=== PATIENT | female | born 1975 | race American Indian/Alaskan Native ===

== ENCOUNTER 2019-06-26 19:42 | Inpatient (IN) | payer BC ==
[2019-06-26] MEDS ORDERED: ASPIRIN 325 MG TAB PO ONE (20:20)
--- NOTE | 2019-06-26 20:21 | Event Note ---
ED Screening Note Date of service: 06/26/19 Time: 20:16 ED Screening Note: This is a 43 y.o. F. that presents to the ER with left side chest pain and headache. Reports headache started last Thursday and chest pain started today. Patient recently started on lisinopril 4 days ago by PCP Dr. Whitlock with no change. This initial assessment/diagnostic orders/clinical plan/treatment(s) is/are subject to change based on patients health status, clinical progression and re- assessment by fellow clinical providers in the ED. Further treatment and workup at subsequent clinical providers discretion. Patient/guardian urged not to elope from the ED as their condition may be serious if not clinically assessed and managed. Initial orders include: Labs, EKG, & CXR
[2019-06-26 21:04] LABS: Basophils # (Auto) 0.1 K/mm3 (0.0-0.1); Basophils % (Auto) 1.2 % (0.0-1.8); Eosinophils # (Auto) 0.2 K/mm3 (0.0-0.4); Eosinophils % (Auto) 2.1 % (0.0-4.3); Hematocrit 35.3 % (30.3-42.9); Hemoglobin 11.8 gm/dl (10.1-14.3); Lymphocytes # (Auto) 2.8 K/mm3 (1.2-5.4); Lymphocytes % (Auto) 40.2 % (13.4-35.0); Mean Corpuscular HGB Conc 34 % (30-34); Mean Corpuscular Volume 83 fl (79-97); Monocytes # (Auto) 0.7 K/mm3 (0.0-0.8); Monocytes % (Auto) 10.5 % (0.0-7.3); Platelet Count 289 K/mm3 (140-440); Red Blood Count 4.24 M/mm3 (3.65-5.03); Red Cell Distribution Width 13.8 % (13.2-15.2)
[2019-06-26 21:07] LABS: BUN/Creatinine Ratio 13; Blood Urea Nitrogen 9 mg/dL (7-17); Calcium 8.7 mg/dL (8.4-10.2); Hemolysis Index 1
--- NOTE | 2019-06-26 21:14 | XRay Report ---
CHEST 1 VIEW 8:45 PM INDICATION / CLINICAL INFORMATION: Chest pain starting today. COMPARISON: None available. FINDINGS: SUPPORT DEVICES: None. HEART / MEDIASTINUM: The heart size and pulmonary vasculature are normal. The aorta is normal in jun adela. LUNGS / PLEURA: No significant pulmonary or pleural abnormality. No pneumothorax. ADDITIONAL FINDINGS: No significant additional findings. IMPRESSION: No acute findings. Signer Name: Jay Gordon MD Signed: 06/26/2019 9:10 PM Workstation Name: [id number]
--- NOTE | 2019-06-27 00:04 | Cat Scan Report ---
CTA CHEST WITH CONTRAST INDICATION / CLINICAL INFORMATION: CP, elevated d-dimer, r/o PE. TECHNIQUE: Axial CT images were obtained through the chest after injection of 100 MLO Omnipaque 350 IV contrast. 3 plane MIP and/or 3D reconstructions were produced. All CT scans at this location are performed usi ng CT dose reduction for ALARA by means of automated exposure control. COMPARISON: None available. FINDINGS: PULMONARY ARTERIES: Small, nonocclusive right upper lobe and right lower lobe emboli. THORACIC AORTA: No significant abnormality. HEART: Mildly enlarged. No pericardial effusion. CORONARY ARTERIES: No significant calcification. MEDIASTINUM / DEYA: No significant abnormality. PLEURA: No pleural effusion. No pneumothorax. LUNGS: No acute air space or interstitial disease. ADDITIONAL FINDINGS: None. UPPER ABDOMEN: No acute findings. SKELETAL STRUCTURES: No significant osseous abnormality. IMPRESSION: 1. Small, nonocclusive right upper and right lower lobe pulmonary emboli. 2. No acute pulmonary or pleural findings. CRITICAL RESULT: Time of Discovery (FINE GRADE BULLDOZER OPERATOR/CDT): 10:57 PM Time of Communication (FINE GRADE BULLDOZER OPERATOR/CDT): 11:00 PM Licensed Practitioner Receiving Report: MITRA Mar Signer Name: Meek Lyn MD Signed: 06/26/2019 11:59 PM Workstation Name: [id number]
[2019-06-27 00:19] LABS: INR 1.03 (0.87-1.13); Partial Thromboplastin Time 29.9 Sec. (24.2-36.6)
--- NOTE | 2019-06-27 00:19 | Emergency Department Report ---
ED Chest Pain HPI - General Chief Complaint: Chest Pain Stated Complaint: CHEST PAIN, HEADACHE,SOB,DIZZINESS, NAUSEA Time Seen by Provider: 06/26/19 20:16 Source: patient Mode of arrival: Ambulatory Limitations: No Limitations - History of Present Illness Initial Comments: Patient is a 43-year-old female presents to emergency room with complaints of left-sided chest pain that began at 3 PM today. She describes the pain as a sharp stabbing pain that lasts for a few minutes. Denies any chest pain currently. Patient has associated shortness of breath and nausea. Patient denies any lower extremity edema, or any chest pain, vomiting, radiation of the pain. Patient states she is on OCPs. She has never had this pain in the past. She denies any recent travel or recent surgery. Patient states she has a history of high blood pressure and was just started on lisinopril 20 mg last week by her primary care doctor. She states that she has been keeping a blood pressure log and her blood pressure has still been elevated every day. She has not yet discussed this with her primary care provider. She denies any personal or family history of cardiac issues or DVT/PE. - Related Data Previous Rx's Medication Instructions Recorded Last Taken Type Acetaminophen [Acetaminophen TAB] 650 mg PO Q4H PRN tablet 06/27/19 Unknown Rx Apixaban [Eliquis] 5 mg PO Q12HR #30 tablet 06/27/19 Unknown Rx Apixaban [Eliquis] 10 mg PO Q12HR #14 tablet 06/27/19 Unknown Rx amLODIPine [Norvasc] 10 mg PO QDAY #30 tablet 06/27/19 Unknown Rx oxyCODONE /ACETAMINOPHEN [Percocet 1 tab PO Q6H PRN #14 tablet 06/27/19 Unknown Rx 5/325 mg] Allergies Allergy/AdvReac Type Severity Reaction Status Date / Time ampicillin Allergy Hives Verified 06/26/19 20:14 Heart Score - HEART Score History: Slightly suspicious EKG: Normal Age: < 45 Risk factors: 1-2 risk factors Troponin: < normal limit HEART Score: 1 ED Review of Systems ROS: Stated complaint: CHEST PAIN, HEADACHE,SOB,DIZZINESS, NAUSEA Other details as noted in HPI Comment: All other systems reviewed and negative ED Past Medical Hx - Past Medical History Previous Medical History?: Yes Hx Hypertension: Yes - Surgical History Past Surgical History?: No - Social History Smoking Status: Never Smoker Substance Use Type: Alcohol - Medications Home Medications: Home Medications Medication Instructions Recorded Confirmed Last Taken Type Acetaminophen [Acetaminophen TAB] 650 mg PO Q4H PRN tablet 06/27/19 Unknown Rx Apixaban [Eliquis] 5 mg PO Q12HR #30 tablet 06/27/19 Unknown Rx Apixaban [Eliquis] 10 mg PO Q12HR #14 tablet 06/27/19 Unknown Rx amLODIPine [Norvasc] 10 mg PO QDAY #30 tablet 06/27/19 Unknown Rx oxyCODONE /ACETAMINOPHEN [Percocet 1 tab PO Q6H PRN #14 tablet 06/27/19 Unknown Rx 5/325 mg] ED Physical Exam - General Limitations: No Limitations General appearance: alert, in no apparent distress - Head Head exam: Present: atraumatic, normocephalic - Eye Eye exam: Present: normal appearance - ENT ENT exam: Present: mucous membranes moist - Respiratory Respiratory exam: Present: normal lung sounds bilaterally. Absent: respiratory distress, wheezes, rales, rhonchi, stridor, chest wall tenderness, accessory muscle use, decreased breath sounds, prolonged expiratory - Cardiovascular Cardiovascular Exam: Present: regular rate, normal rhythm, normal heart sounds. Absent: systolic murmur, diastolic murmur, rubs, gallop - Neurological Exam Neurological exam: Present: alert, oriented X3 - Psychiatric Psychiatric exam: Present: normal affect, normal mood - Skin Skin exam: Present: warm, dry, intact ED Course Vital Signs 06/26/19 06/27/19 06/27/19 20:16 00:41 00:45 Temperature 98.1 F Pulse Rate 71 90 74 Respiratory 18 16 13 Rate Blood Pressure 196/99 208/94 O2 Sat by Pulse 95 98 100 Oximetry 06/27/19 06/27/19 06/27/19 01:01 01:17 01:31 Temperature Pulse Rate 63 76 Respiratory 17 18 Rate Blood Pressure 119/52 119/52 201/100 O2 Sat by Pulse 100 100 100 Oximetry 06/27/19 06/27/19 06/27/19 01:45 02:01 02:15 Temperature Pulse Rate 61 56 L 67 Respiratory 18 20 19 Rate Blood Pressure 191/88 191/88 208/94 O2 Sat by Pulse 100 100 99 Oximetry 06/27/19 06/27/19 06/27/19 02:31 03:01 03:30 Temperature Pulse Rate 62 62 63 Respiratory 19 17 20 Rate Blood Pressure 208/94 167/81 167/81 O2 Sat by Pulse 99 100 99 Oximetry 06/27/19 06/27/19 06/27/19 03:40 03:50 04:00 Temperature Pulse Rate 76 60 56 L Respiratory 19 17 19 Rate Blood Pressure 167/81 167/81 O2 Sat by Pulse 98 98 98 Oximetry 06/27/19 04:26 Temperature 97.8 F Pulse Rate 60 Respiratory 18 Rate Blood Pressure 185/89 O2 Sat by Pulse 99 Oximetry - Consultations Consultation #1: 06/27/19 00:[address] Mccullough hospitalist for admission, will call again Consultation #2: 06/27/19 00:[address] Mccullough hospitalist who will accept and resume care of pt will admit pt to the hospital ED Medical Decision Making - Lab Data Result diagrams: 06/26/19 20:23 06/26/19 20:23 - Radiology Data Radiology results: report reviewed CTA CHEST WITH CONTRAST INDICATION / CLINICAL INFORMATION: CP, elevated d-dimer, r/o PE. TECHNIQUE: Axial CT images were obtained through the chest after injection of 100 MLO Omnipaque 350 IV contrast. 3 plane MIP and/or 3D reconstructions were produced. All CT scans at this location are performed using CT dose reduction for ALARA by means of automated exposure contr ol. COMPARISON: None available. FINDINGS: PULMONARY ARTERIES: Small, nonocclusive right upper lobe and right lower lobe emboli. THORACIC AORTA: No significant abnormality. HEART: Mildly enlarged. No pericardial effusion. CORONARY ARTERIES: No significant calcification. MEDIASTINUM / DEYA: No significant abnormality. PLEURA: No pleural effusion. No pneumothorax. LUNGS: No acute air space or interstitial disease. ADDITIONAL FINDINGS: None. UPPER ABDOMEN: No acute findings. SKELETAL STRUCTURES: No significant osseous abnormality. IMPRESSION: 1. Small, nonocclusive right upper and right lower lobe pulmonary emboli. 2. No acute pulmonary or pleural findings. CRITICAL RESULT: Time of Discovery (ARTIFICIAL FLOWERS SUPERVISOR/CDT): 10:57 PM Time of Communication (ARTIFICIAL FLOWERS SUPERVISOR/CDT): 11:00 PM Licensed Practitioner Receiving Report: MITRA Mar Signer Name: Meek Lyn MD Signed: 06/26/2019 11:59 PM Workstation Name: [id number] - Medical Decision Making Patient is a 43-year-old female presents to emergency room with complaints of left-sided chest pain that began at 3 PM today. She describes the pain as a sharp stabbing pain that lasts for a few minutes. Denies any chest pain cur rently. Patient has associated shortness of breath and nausea. Patient denies any lower extremity edema, or any chest pain, vomiting, radiation of the pain. Patient states she is on OCPs. She has never had this pain in the past. She denies any recent travel or recent surgery. Patient states she has a history of high blood pressure and was just started on lisinopril 20 mg last week by her primary care doctor. She states that she has been keeping a blood pressure log and her blood pressure has still been elevated every day. She has not yet discussed this with her primary care provider. She denies any personal or family history of cardiac issues or DVT/PE. vitals with elevated BP otherwise normal. labs significant for elevated D-dimer. troponin is negative x2. CTA chest performed and shows: 1. Small, nonocclusive right upper and right lower lobe pulmonary emboli. 2. No acute pulmonary or pleural findings. discussed case with Dr. Flores, ER attending and he recommended admission and started pt on heparin bolus. spoke with Dr. Mccullough, hospitalist who will accept and resume care of pt will admit pt to the hospital. pt admitted to the hospital. - Differential Diagnosis ACS, PE, costochrondritis, aortic aneursym, GERD, valve dysfunction Critical care attestation.: If time is entered above; I have spent that time in minutes in the direct care of this critically ill patient, excluding procedure time. ED Disposition Clinical Impression: SOB (shortness of breath) Chest pain Qualifiers: Chest pain type: unspecified Qualified Code(s): R07.9 - Chest pain, unspecified Pulmonary embolism Qualifiers: Pulmonary embolism type: unspecified Chronicity: acute Acute cor pulmonale presence: without acute cor pulmonale Qualified Code(s): I26.99 - Other pulmonary embolism without acute cor pulmonale Disposition: OP ADMIT IP TO THIS HOSP Is pt being admited?: Yes Does the pt Need Aspirin: Yes (already given) Condition: Good
[2019-06-27] MEDS ORDERED: HEPARIN 10,000 UNITS/10 ML VIAL IV ONE (00:25)
--- NOTE | 2019-06-27 00:29 | Event Note ---
Date of service: 06/27/19 Face to Face: For this encounter I have reviewed the PA/BAR PORTER documentation, treatment plan, medical decision making, and I had face to face time with this patient. Pt with CP/SOB with multople PE present. heparin bolus given
[2019-06-27 00:53] LABS: INR 1.01 (0.87-1.13); Partial Thromboplastin Time 30.2 Sec. (24.2-36.6)
[2019-06-27] MEDS ORDERED: HEPARIN/ 0.45% NACL DRIP 25,000 UNIT/500 ML BAG IV SCH (01:00)
[2019-06-27] MEDS ORDERED: ACETAMINOPHEN 325 MG TAB PO PRN (01:31)
[2019-06-27] MEDS ORDERED: ONDANSETRON 4 MG/2 ML INJ IV PRN (01:31)
[2019-06-27] MEDS ORDERED: oxyCODONE /ACETAMINOPHEN 5-325MG TAB PO PRN (01:31)
[2019-06-27] MEDS ORDERED: hydrALAZINE 20 MG/1 ML INJ IV PRN (01:35)
[2019-06-27] MEDS ORDERED: amLODIPine 10 MG TAB PO SCH (01:36)
--- NOTE | 2019-06-27 01:37 | History and Physical Report ---
History of Present Illness Date of examination: 06/27/19 Chief complaint: Chest pain History of present illness: Patient is a 43-year-old -[place] female with history of hypertension wh o presented to the ED on account of a day history of midsternal chest pain. She described it as stabbing in nature, rated 10 over 10, nonradiating and constant in induration. No known aggravating or relieving factors. She has associated shortness of breath, palpitation, dry cough, chills without fever, headaches, nausea without vomiting and lightheadedness. No diaphoresis, leg swelling, orthopnea, PND, syncope or loss of consciousness. Of note, patient has 12 years history of oral contraceptive use. Past History Past Medical History: hypertension, hyperlipidemia Past Surgical History: Social history: smoking (patient has 2 yrs history of cigarette smoking but quit 10 years ago. She admits to occasional alcohol use but denies illicit drug use) Family history: hypertension (mother and grandmum), other (Grandmum had brain aneurysm. No known family history of clots) Medications and Allergies Allergies Allergy/AdvReac Type Severity Reaction Status Date / Time ampicillin Allergy Hives Verified 06/26/19 20:14 Active Meds: Active Medications Acetaminophen (Tylenol) 650 mg PO Q4H PRN PRN Reason: Pain MILD(1-3)/Fever >100.5/PARDO Amlodipine Besylate (Norvasc) 10 mg PO QDAY SREEKANTH Apixaban (Eliquis) 10 mg PO Q12HR SREEKANTH; Protocol Hydralazine HCl (Apresoline) 10 mg IV Q4HR PRN PRN Reason: Blood Pressure Morphine Sulfate (Morphine) 2 mg IV Q4H PRN PRN Reason: Pain , Severe (7-10) Ondansetron HCl (Zofran) 4 mg IV Q8H PRN PRN Reason: Nausea And Vomiting Oxycodone/Acetaminophen (Percocet 5/325) 1 tab PO Q6H PRN PRN Reason: Pain, Moderate (4-6) Sodium Chloride (Sodium Chloride Flush Syringe 10 Ml) 10 ml IV BID SREEKANTH Sodium Chloride (Sodium Chloride Flush Syringe 10 Ml) 10 ml IV PRN PRN PRN Reason: LINE FLUSH Review of Systems All systems: negative (all other systems reviewed with the patient and are negative unless otherwise stated above) Exam - Constitutional Vitals: Temp Pulse Resp BP Pulse Ox 98.1 F 71 18 196/99 95 06/26/19 20:16 06/26/19 20:16 06/26/19 20:16 06/26/19 20:16 06/26/19 20:16 General appearance: Present: no acute distress, well-nourished - EENT Eyes: Present: PERRL, EOM intact ENT: hearing intact, clear oral mucosa - Neck Neck: Present: supple, normal ROM - Respiratory Respiratory effort: normal Respiratory: bilateral: CTA - Cardiovascular Rhythm: regular Heart Sounds: Present: S1 & S2. Absent: rub, click - Extremities Extremities: pulses symmetrical, No edema Peripheral Pulses: within normal limits - Abdominal General gastrointestinal: Present: soft, non-tender, non-distended, normal bowel sounds Female genitourinary: Present: deferred - Rectal Rectal Exam: deferred - Integumentary Integumentary: Present: clear, warm, dry - Musculoskeletal Musculoskeletal: gait normal, strength equal bilaterally - Psychiatric Psychiatric: appropriate mood/affect, intact judgment & insight - Neurologic Neurologic: CNII-XII intact, moves all extremities Results - Labs CBC & Chem 7: 06/26/19 20:23 06/26/19 20:23 Labs: Laboratory Last Values WBC 7.0 K/mm3 (4.5-11.0) 06/26/19 20:23 RBC 4.24 M/mm3 (3.65-5.03) 06/26/19 20:23 Hgb 11.8 gm/dl (10.1-14.3) 06/26/19 20:23 Hct 35.3 % (30.3-42.9) 06/26/19 20:23 MCV 83 fl (79-97) 06/26/19 20:23 MCH 28 pg (28-32) 06/26/19 20:23 MCHC 34 % (30-34) 06/26/19 20:23 RDW 13.8 % (13.2-15.2) 06/26/19 20:23 Plt Count 289 K/mm3 (140-440) 06/26/19 20:23 Lymph % (Auto) 40.2 % (13.4-35.0) H 06/26/19 20:23 Trigg % (Auto) 10.5 % (0.0-7.3) H 06/26/19 20:23 Eos % (Auto) 2.1 % (0.0-4.3) 06/26/19 20:23 Baso % (Auto) 1.2 % (0.0-1.8) 06/26/19 20:23 Lymph # 2.8 K/mm3 (1.2-5.4) 06/26/19 20: Trigg # 0.7 K/mm3 (0.0-0.8) 06/26/19 20:23 Eos # 0.2 K/mm3 (0.0-0.4) 06/26/19 20: Baso # 0.1 K/mm3 (0.0-0.1) 06/26/19 20:23 Seg Neutrophils % 46.0 % (40.0-70.0) 06/26/19 20: Seg Neutrophils # 3.2 K/mm3 (1.8-7.7) 06/26/19 20:23 PT 13.0 Sec. (12.2-14.9) 06/27/19 00:30 INR 1.01 (0.87-1.13) 06/27/19 00:30 APTT 30.2 Sec. (24.2-36.6) 06/27/19 00:30 582.29 ng/mlDDU (0-234) H 06/26/19 22:27 Sodium 138 mmol/L (137-145) 06/26/19 20:23 Potassium 3.6 mmol/L (3.6-5.0) 06/26/19 20:23 Chloride 101.8 mmol/L (98-107) 06/26/19 20:23 Carbon Dioxide 22 mmol/L (22-30) 06/26/19 20:23 18 mmol/L 06/26/19 20:23 BUN 9 mg/dL (7-17) 06/26/19 20:23 0.7 mg/dL (0.7-1.2) 06/26/19 20:23 Estimated GFR > 60 ml/min 06/26/19 20:23 13 % 06/26/19 20:23 Glucose 84 mg/dL (65-100) 06/26/19 20:23 Calcium 8.7 mg/dL (8.4-10.2) 06/26/19 20:23 < 0.010 ng/mL (0.00-0.029) 06/26/19 22:27 - Imaging and Cardiology CT scan - chest: report reviewed (small non-occlusive right upper and lower lobe pulmonary embolism) Assessment and Plan Assessment and plan: Acute PE (RT upper and lower lobes) -1st episode and provoked by chronic oral contraceptive use -Pt received IV heparin bolus in the ED -She will be started on oral Eliquis -Patient was informed that she can no longer use oral contraceptives Hypertensive urgency -On antihypertensives, will monitor blood pressure Hyperlipidemia -Continue statin Disposition: Patient will be admitted to observation status. Plan for discharge in a.m. if clinically stable Time spent: 35 minutes
[2019-06-27] MEDS ORDERED: MORPHINE 2 MG/1 ML INJ IV PRN (01:44)
[2019-06-27] MEDS ORDERED: amLODIPine 10 MG TAB ONE (02:37)
[2019-06-27] MEDS ORDERED: MORPHINE 2 MG/1 ML INJ ONE (03:42)
[2019-06-27 09:39] VITALS: BP 134/78
[2019-06-27] MEDS ORDERED: APIXABAN 5 MG TAB PO SCH (10:00)
--- NOTE | 2019-06-27 11:01 | Discharge Summary ---
Providers - Providers Date of Admission: 06/27/19 01:31 Date of discharge: 06/27/19 Attending physician: ISAURA BARILLAS Primary care physician: NETWORK SECURITY CONSULTANT Hospitalization Condition: Good Pertinent studies: CTA which showed right-sided pulmonary embolism mild. Hospital course: Patient 43-year-old with a history of hypertension, continue history of control presents with an acute episode of right-sided chest pain shortness of breath hypoxemia. Workup patient found to have right sided pulmonary embolism. Throughout hospitalization patient was oxygenating well. Chest pain resolved. Able to walk around without any difficulty or shortness of breath. Patient started on IV heparin and will make the transition to Eliquis. Patient is also to discontinue control pills. Disposition: DC-01 TO HOME OR SELFCARE - Discharge Diagnoses (1) HTN (hypertension) Status: Acute Comment: Uncontrolled hypertension was secondary to both PE. Suboptimal control on the Cipro. Patient will much better with amlodipine. Would discharge on amlodipine with early follow-up with primary care physician. (2) Chest pain Status: Resolved Qualifiers: Chest pain type: unspecified Qualified Code(s): R07.9 - Chest pain, unspecified Comment: Resolved secondary to PE. (3) Pulmonary embolism Status: Acute Qualifiers: Pulmonary embolism type: unspecified Chronicity: acute Acute cor pulmonale presence: without acute cor pulmonale Qualified Code(s): I26.99 - Other pulmonary embolism without acute cor pulmonale Comment: Patient on heparin with discharge on Eliquis for treatment. Follow-up with primary care CT scan angiogram to reevaluate PE 6 months. (4) SOB (shortness of breath) Status: Acute Core Measure Documentation - Palliative Care Palliative Care/ Comfort Measures: Not Applicable - Core Measures Any of the following diagnoses?: DVT/PE - VTE Discharge Requirements Deep Vein Thrombosis/Pulmonary Embolism Present on Admission: Yes Has pt received <5 days of overlap therapy or INR<2.0: No (strarted on elquis for treatment not indicated) Anticoagulant overlap therapy prescribed at discharge: No Contraindication No Overlap Therapy order at DC: Not Indicated Exam - Constitutional Vitals: Temp Pulse Resp BP Pulse Ox 97.8 F 67 18 134/78 99 06/27/19 04:26 06/27/19 09:37 06/27/19 04:26 06/27/19 09:37 06/27/19 09:37 General appearance: Present: no acute distress, well-nourished - EENT Eyes: Present: PERRL ENT: hearing intact, clear oral mucosa - Neck Neck: Present: supple, normal ROM - Respiratory Respiratory effort: normal Respiratory: bilateral: CTA - Cardiovascular Heart Sounds: Present: S1 & S2. Absent: rub, click - Extremities Extremities: pulses symmetrical, No edema Peripheral Pulses: within normal limits - Abdominal General gastrointestinal: Present: soft, non-tender, non-distended, normal bowel sounds Female genitourinary: Present: normal - Integumentary Integumentary: Present: clear, warm, dry - Musculoskeletal Musculoskeletal: gait normal, strength equal bilaterally - Psychiatric Psychiatric: appropriate mood/affect, intact judgment & insight - Neurologic Neurologic: CNII-XII intact, moves all extremities Plan Activity: no restrictions Weight Bearing Status: Full Weight Bearing Diet: low salt Care Plan Goals: f/u with primary care for repeat scan Follow up with: PRIMARY CARE, [Primary Care Provider] - 3-5 Days Prescriptions: Apixaban [Eliquis] 5 mg PO Q12HR #30 tablet Apixaban [Eliquis] 10 mg PO Q12HR #14 tablet amLODIPine [Norvasc] 10 mg PO QDAY #30 tablet oxyCODONE /ACETAMINOPHEN [Percocet 5/325 mg] 1 tab PO Q6H PRN #14 tablet PRN Reason: Pain, Moderate (4-6)
[2019-07-04] MEDS ORDERED: APIXABAN 5 MG TAB PO SCH (10:00)
== END 2019-06-27 15:00 | disposition home or self-care (01) | DRG 304 ==
LOC: ED 19:42 → 4A 06-27 01:31
PROVIDERS: ADMIT Internal Medicine; ATTEND Internal Medicine
DX: I16.0 Hypertensive urgency (principal); I26.99 Other pulmonary embolism without acute cor pulmonale; I10 Essential (primary) hypertension; E78.5 Hyperlipidemia, unspecified; Z79.01 Long term (current) use of anticoagulants; Z79.899 Other long term (current) drug therapy; Z88.0 Allergy status to penicillin; Z82.49 Family history of ischemic heart disease and other diseases of the circulatory system; Z87.891 Personal history of nicotine dependence
CPT/HCPCS: 36415; 71045; 71275; 80048; 84484; 85025; 85379; 85610; 85730; 93005; 93010; 96365; 96366; G0378; J1644; J2270; Q9967